=== PATIENT | female | born 1960 | race Caucasian/White ===

== ENCOUNTER 2024-09-18 10:30 | Day surgery (SDC) | payer OTHER, SELFPAY ==
[2024-09-18] VITALS (12 sets, daily range): BP systolic 98–186; BP diastolic 66–125; PULSE 62–92; RESP 10–20; TEMP 36.3–36.7; O2SAT 94–100; BMI 31.9
[2024-09-18] MEDS: SODIUM CHLORIDE 0.9% 250 ML 250 ML 125 ML IV (12:06)
[2024-09-18] MEDS: ONDANSETRON INJ 2 MG/ML INJ 2 ML 4 MG IV (12:15)
[2024-09-18] MEDS: DiphenhydrAMINE INJ 50 MG/ML VIAL 25 MG IV (12:15)
[2024-09-18] MEDS: fentaNYL CIT INJ 50 mCg/ML AMP 2ML (ASD USE ONLY) 25 MCG IV (12:20)
[2024-09-18] MEDS: MEPERIDINE INJ 25 MG/ML VIAL (ASD USE ONLY) IV (12:23)
[2024-09-18] MEDS: MIDAZOLAM INJ 1 MG/ML VIAL 2 ML (ASD USE ONLY) 2 MG IV (12:23)
== END 2024-09-18 13:38 | disposition home or self-care (01) ==
PROVIDERS: PCP Internal Medicine; Referring Provider Specialist; Visit Provider Specialist
PROC: 0DBE8ZX Excision of Large Intestine, Via Natural or Artificial Opening Endoscopic, Diagnostic (ICD-10-PCS; CPT 45380; principal; 2024-09-18 11:15)
DX: Z12.11 Encounter for screening for malignant neoplasm of colon (principal); K64.9 Unspecified hemorrhoids; K57.30 Diverticulosis of large intestine without perforation or abscess without bleeding; K63.5 Polyp of colon
CPT/HCPCS: 45385; J1200; J2175; J2250; J2405; J3010; J7050

== ENCOUNTER → 2025-01-07 | Outpatient (CLI) | payer OTHER, SELFPAY ==
--- NOTE | 2025-01-07 09:00 | XR_ITS ---
Examination: Breast ultrasound complete, bilateral Date and time of exam: January 07, 2025 0909 hours INDICATIONS: Bilateral breast sonography January 07, 2024 right breast 3:00 nodule 11 mm 4:00 nodule 6 mm Technique: Real-time grayscale ultrasonographic imaging bilateral breasts, including all 4 quadrants as well as nipple retroareolar and axillary regions. Findings: Sonographic images right breast 4:00 nodule circumscribed 6 x 6 mm 3:00 nodule circumscribed 6 x 5 mm 2:00 nodule circumscribed 5 x 5 mm Sonographic images left breast 12:00 cyst 4 x 4 millimeter IMPRESSION: BI-RADS Category 3: Probably benign findings One additional continued 6 month right breast sonogram follow-up is needed to document stability of multiple nodules described above
== END | disposition home or self-care (01) ==
LOC: CDIM 08:45
PROVIDERS: PCP Internal Medicine; Referring Provider Internal Medicine; Visit Provider Internal Medicine
DX: Z12.39 Encounter for other screening for malignant neoplasm of breast (principal); N63.15 Unspecified lump in the right breast, overlapping quadrants; N63.12 Unspecified lump in the right breast, upper inner quadrant; N63.14 Unspecified lump in the right breast, lower inner quadrant
CPT/HCPCS: 76641